=== PATIENT | female | born 1960 | race Caucasian/White ===

== ENCOUNTER 2025-04-18 20:27 | Inpatient (IN) | payer BC ==
[~2025-04-18] VITALS: Ht 167.6 cm; Wt 68.0 kg
[2025-04-18] MEDS ORDERED: ONDANSETRON 4 MG/2 ML VIAL ONE (20:32)
[2025-04-18] MEDS ORDERED: LORAZEPAM 2 MG/1 ML VIAL ONE ×2 (20:36→21:06)
[2025-04-18] MEDS: LORAZEPAM 2 MG/1 ML VIAL IV ONE ×2 (20:39→21:23)
[2025-04-18] MEDS: ONDANSETRON 4 MG/2 ML VIAL IV ONE (20:59)
[2025-04-18] MEDS ORDERED: diphenhydrAMINE 50 MG/1 ML VIAL ONE (21:00)
[2025-04-18] MEDS: diphenhydrAMINE 50 MG/1 ML VIAL IV ONE (21:04)
[2025-04-18] MEDS ORDERED: HALOPERIDOL LACTATE 5 MG/1 ML VIAL ONE (21:06)
[2025-04-18] MEDS: HALOPERIDOL LACTATE 5 MG/1 ML VIAL IV ONE (21:22)
[2025-04-18 21:33] LABS: PLATELET COUNT (AUTO) 150 K/uL (179-408); RED BLOOD CELL COUNT(AUTO) 4.13 MIL/uL (3.63-4.92); RED CELL DISTRIBUTION WIDTH 14.3 % (12.3-17.7); WHITE BLOOD COUNT (AUTO) 5.7 K/uL (3.8-11.8)
[2025-04-18 21:34] LABS: ETHANOL 127.0 MG/DL (0-10)
[2025-04-18 22:24] LABS: ASPARTATE AMINOTRANSFERASE 33.0 U/L (15-37); TOTAL PROTEIN, SERUM 6.7 g/dL (6.4-8.2)
[2025-04-18 22:32] LABS: CREATININE 0.8 mg/dL (0.6-1.3); SODIUM SERUM 143.0 mmol/L (136-145); UREA NITROGEN, BLOOD 12.0 mg/dL (7-18)
[2025-04-18] MEDS ORDERED: OXYC-592 PO (22:44)
[2025-04-18] MEDS ORDERED: ACETAMINOPHEN 325 MG TABLET PO PRN (23:15)
[2025-04-18] MEDS ORDERED: LORAZEPAM 2 MG/1 ML VIAL IV PRN (23:15)
[2025-04-18] MEDS ORDERED: MAGNESIUM HYDROXIDE 30 ML LIQUID UDC PO PRN (23:15)
[2025-04-18] MEDS ORDERED: ONDANSETRON 4 MG/2 ML VIAL IV PRN (23:15)
[2025-04-19] VITALS: BP 98/72
[2025-04-19 01:00] VITALS: BP 104/62; TEMP 97.6
[2025-04-19] MEDS: IV NORMAL SALINE 1000 ML BAG IV ONE (01:11)
[2025-04-19] MEDS: CHLORDIAZEPOXIDE HCL 25 MG CAPSULE PO SCH (01:11)
[2025-04-19] MEDS: POTASSIUM CHLORIDE 50 ML IV SCH (01:13)
[2025-04-19] MEDS: ENOXAPARIN SODIUM 40 MG/0.4 ML DISP.SYRIN SQ SCH (01:13)
[2025-04-19 06:43] LABS: PLATELET COUNT (AUTO) 280 K/uL (179-408); RED BLOOD CELL COUNT(AUTO) 3.80 MIL/uL (3.63-4.92); RED CELL DISTRIBUTION WIDTH 13.0 % (12.3-17.7); WHITE BLOOD COUNT (AUTO) 9.7 K/uL (3.8-11.8)
[2025-04-19 07:12] LABS: ASPARTATE AMINOTRANSFERASE 28.0 U/L (15-37); CREATININE 0.7 mg/dL (0.6-1.3); SODIUM SERUM 141.0 mmol/L (136-145); TOTAL PROTEIN, SERUM 6.2 g/dL (6.4-8.2); UREA NITROGEN, BLOOD 12.0 mg/dL (7-18)
[2025-04-19 07:28] VITALS: BP 111/64; TEMP 98.1; O2SAT 95
[2025-04-19] MEDS: IV NS 1000 ML 1,000 ML IV PRN (08:35)
[2025-04-19] MEDS: FOLIC ACID 1 MG TABLET PO SCH (08:35)
[2025-04-19] MEDS: THIAMINE HCL 100 MG TABLET PO SCH (08:35)
[2025-04-19 10:40] LABS: *BILIRUBIN,URIN NEGATIVE (NEGATIVE); *BLOOD, URINE NEGATIVE (NEGATIVE); *CLARITY,URINE CLEAR (CLEAR); *COLOR,URINE YELLOW (YELLOW); *KETONES,URINE 1+ (NEGATIVE); *PROTEIN,URINE NEGATIVE (NEGATIVE); *UROBILINOGEN,URINE 0.2 E.U./dl (NORMAL); LEUKOCYTE ESTERASE ,URINE 2+ (NEGATIVE); NITRITE, URINE NEGATIVE (NEGATIVE); UGLUCOSE NEGATIVE (NEGATIVE)
[2025-04-19 10:42] LABS: *URINE HCG, QUAL NEGATIVE (NEGATIVE)
[2025-04-19 10:54] VITALS: BP 104/58; TEMP 98.2; O2SAT 98
[2025-04-19 11:06] LABS: SQUAMOUS EPITHELIAL CELL,UR FEW /HPF (NONE SEEN)
[2025-04-19 11:08] LABS: *AMPHETAMINE, URINE NEGATIVE (NEGATIVE); *BARBITURATE, URINE NEGATIVE (NEGATIVE); *BENZODIAZEPINE, URINE POSITIVE (NEGATIVE); *CANNABINOID, URINE NEGATIVE (NEGATIVE); *COCCAINE, URINE NEGATIVE (NEGATIVE); *OPIATE, URINE POSITIVE (NEGATIVE); *PHENCYCLIDINE SCREEN,URINE NEGATIVE (NEGATIVE); FENTANYL, URINE NEGATIVE (NEGATIVE)
[2025-04-19] MEDS ORDERED: OXYC-128 PO (12:38)
[2025-04-19] MEDS ORDERED: CHOL500062 PO (12:40)
[2025-04-19] MEDS ORDERED: RED600CA2 PO (12:43)
[2025-04-19 14:51] VITALS: BP 118/71; TEMP 98; O2SAT 97
[2025-04-19] MEDS ORDERED: CEPH500C2 PO (17:00)
== END 2025-04-19 15:20 | disposition home or self-care (01) | DRG 917 ==
LOC: ER 20:37 → TELE3 04-19 00:03 → MEDSURG3 04-19 09:51
PROVIDERS: ADMIT Nurse Practitioner Acute Care; ATTEND Nurse Practitioner Acute Care
DX: T40.2X1A Poisoning by other opioids, accidental (unintentional), initial encounter (principal); G92.8 Other toxic encephalopathy; N39.0 Urinary tract infection, site not specified; T51.0X1A Toxic effect of ethanol, accidental (unintentional), initial encounter; Y92.012 Bathroom of single-family (private) house as the place of occurrence of the external cause; E87.6 Hypokalemia; G50.0 Trigeminal neuralgia
CPT/HCPCS: 36415; 83735; 84100; 84703; 85025; 87077; 87086; A4606; A4663; G0378; G0480; J1200; J1630; J1650; J2060; J2405; J3480; J7040